=== PATIENT | female | born 1990 | race Caucasian/White ===

== ENCOUNTER 2017-09-09 13:34 | Emergency (ER) | payer OTHER ==
[2017-09-09] MEDS: CEPHALEXIN 500 MG CAP PO (14:37)
[2017-09-09] MEDS: TRIMETHOPRIM/SULFAMETHOX (DS) TAB PO (14:37)
[2017-09-09] MEDS: IBUPROFEN 600 MG TAB PO (14:38)
== END 2017-09-09 15:15 | disposition home or self-care (01) ==
LOC: FTE 13:34
DX: S90.562A Insect bite (nonvenomous), left ankle, initial encounter (principal); W57.XXXA Bitten or stung by nonvenomous insect and other nonvenomous arthropods, initial encounter; Y92.9 Unspecified place or not applicable
CPT/HCPCS: 99284; Z7502